=== PATIENT | female | born 1975 | race Caucasian/White ===

== ENCOUNTER 2023-09-13 07:52 | Outpatient (CLI) | payer MEDICAID, SELFPAY ==
--- NOTE | 2023-09-13 08:00 | CT_ITS ---
WS: [id number] CT ABDOMEN AND PELVIS WITH CONTRAST HISTORY: chronic abdominal pain TECHNIQUE: Imaging performed of the abdomen and pelvis with IV contrast. Single phase imaging of the abdomen. Coronal and sagittal reformats are submitted. All CT scans at [facility] use at [address] one of these dose optimization techniques: automated exposure control; mA and/or kV adjustment per patient size (includes targeted exams where dose is matched to clinical indication); or iterative re construction. IV CONTRAST: Omnipaque 350; 100 mL IV. Oral contrast: Yes. DLP: 333.77 mGy.cm COMPARISON: None available. Lower thorax: Lung bases are clear. Heart is normal size. No hiatal hernia. Liver/biliary system: Normal size liver. There are a very few low-attenuation nodules throughout the liver which are very small. Too small to characterize. Normal portal vein. Gallbladder: Normal. No gallstones or wall thickening. No pericholecystic fluid. Pancreas: Normal size pancreas and pancreatic duct. No adjacent inflammation. Spleen: Normal size spleen. No mass or infarct. Adrenal glands: Normal. Right kidney: Normal size kidney. Upper pole cyst 1.4 x 1.7 cm. No obstruction. Left kidney: Cortical cyst mid kidney less than a centimeter. Aorta: Normal. Lymphadenopathy: None. Free fluid: There is fluid within the LEFT pelvis which does abut the ovary. The amount of fluid is s lightly more than physiologic. GI tract: Normally distended stomach. No small bowel obstruction. Tortuous colon with constipation. N ormal appendix. Abdominal wall: Unremarkable abdominal wall. No hernia. Pelvis: Partial hysterectomy. The uterus is no longer present. The RIGHT ovary by history has been re moved. There is free fluid in the LEFT adnexa in contact with the ovary. Bones: Unremarkable. IMPRESSION: 1. Prior hysterectomy. The LEFT ovary remains and there is a small amount of free fluid adjacent to the ovary in the LEFT adnexa. The amount of fluid is slightly more than expected for physiologic. If there is any pelvic pain consider transvaginal pelvic ultrasound imaging to better evaluate the ovary in the adnexa. 2. Normal appendix. 3. No renal obstruction. 4. RIGHT renal cyst. 5. Diffuse constipation.
[2023-09-13] MEDS: iohexol 350 mg/mL 500 mL Btl (per mL) IV (09:00)
[2023-09-13] MEDS: iohexol 350 mg/mL 500 mL Btl (per mL) PO (09:01)
== END 2023-09-13 07:53 | disposition home or self-care (01) ==
LOC: RAD 07:53
PROVIDERS: PCP Nurse Practitioner Family; Visit Provider Surgery
DX: R10.9 Unspecified abdominal pain (principal); G89.29 Other chronic pain; R93.89 Abnormal findings on diagnostic imaging of other specified body structures; Z90.710 Acquired absence of both cervix and uterus; N28.1 Cyst of kidney, acquired; K59.00 Constipation, unspecified
CPT/HCPCS: 74177; Q9967

== ENCOUNTER 2023-09-30 11:24 | Outpatient (CLI) | payer MEDICAID, SELFPAY ==
--- NOTE | 2023-09-30 12:00 | US_ITS ---
WS: [id number] US pelv w/transvag [id number] HISTORY: left adnexal fluid COMPARISON: None available. Status post hysterectomy. No midline mass. Right ovary: Prior RIGHT oophorectomy. No RIGHT adnexal mass.. Left ovary: 3.9 cm x 3.4 cm x 1.7 cm. Normal size ovary. Separate from the ovary is a fluid collectio n in the LEFT adnexa extending deep within the pelvis. This cystic collection conforms to the adjacen t space and measures 1.6 x 3.4 x 1.3 cm. This is a simple cystic collection that was noted on the constantin or CT of 09/13/2023. No increased vascularity. No free fluid in the pelvis. IMPRESSION: 1. Cystic mass in the LEFT adnexa does not appear to be contiguous with the ovary. Favor peritoneal inclusion cyst. 2. Status post hysterectomy and RIGHT oophorectomy.
== END 2023-09-30 11:25 | disposition home or self-care (01) ==
LOC: RAD 11:25
PROVIDERS: PCP Nurse Practitioner Family; Visit Provider Surgery
DX: N94.89 Other specified conditions associated with female genital organs and menstrual cycle (principal); R10.2 Pelvic and perineal pain; Z90.710 Acquired absence of both cervix and uterus; Z90.721 Acquired absence of ovaries, unilateral
CPT/HCPCS: 76830; 76856

== ENCOUNTER → 2023-11-12 10:00 | Outpatient (BNVA) | payer SELFPAY | PROVIDERS: PCP Nurse Practitioner Family; Referring Provider Surgery; Visit Provider Nurse Practitioner Women's Health | DX: N83.209 Unspecified ovarian cyst, unspecified side (principal) | CPT/HCPCS: 82670; 83001; 83002 ==

== ENCOUNTER 2023-11-13 11:20 | Day surgery (SDC) | payer SELFPAY ==
[2023-11-13 12:13] VITALS: BP 130/75; PULSE 72; RESP 16; TEMP 36.1; O2SAT 100; BMI 29.2
[2023-11-13] MEDS: sodium chloride 0.9% 1,000 ML 30 ML IV (12:17)
--- NOTE | 2023-11-13 12:22 | W.PM.OPSUD ---
Surgery/Procedure H&P Update DATE OF PROCEDURE: November 13, 2023 DATE H&P PERFORMED: 10/16/23 H&P UPDATE INFORMATION: I have reviewed H&P completed within last 30 days, I have examined patient prior to procedure, No changes to prior documentation and H&P is in [facility] EMR on date indicated PLANNED PROCEDURE: Operation Date: 11/13/23 12:20 Proposed Procedures p EGD(Not Applicable) - Chintan Johnson MD s Colonoscopy(Not Applicable) - Chintan Johnson MD
--- NOTE | 2023-11-13 12:22 | ANES.PREANE2 ---
Pre-Anesthetic Assessment Height/Weight: Height 1.63 m Weight 77.111 kg Temp Pulse Resp BP Pulse Ox O2 Del Method 96.9 F L 72 16 130/75 100 Room Air 11/13/23 12:13 11/13/23 12:13 11/13/23 12:13 11/13/23 12:13 11/13/23 12:13 11/13/23 12:13 Operation Date: 11/13/23 12:20 Proposed Procedures p EGD(Not Applicable) - Chintan Johnson MD s Colonoscopy(Not Applicable) - Chintan Johnson MD Familial anesthetic complications: none Was Beta Jasmin taken within 24 hours: N/A Was Clonidine taken within 24 hours: N/A Last intake: Intake Last Liquid Date 11/12/23 Last Liquid Time 21:00 Last Solid Date 11/11/23 Last Solid Time 19:00 Social No alcohol and No tobacco Exam alert and oriented x 3 Airway Submandibular: within normal limits Cervical ROM: within normal limits Mallampati: Class II Dentition: full Anesthetic Plan ASA status: 1 Anesthesia: Anesthesia Evaluation, General and MAC Risk of > 500 ml blood loss (7ml/kg in children): No Medications/Allergies Home Medications Medication Instructions Recorded Confirmed Last Taken Type No Known Home Medications 08/20/23 11/13/23 Unknown History Allergies Allergy/AdvReac Type Severity Reaction Status Date / Time morphine AdvReac Intermediate ALGY-Difficulty Uncoded 11/13/23 12:09 Breathing Current Medications Generic Name Dose Route Start Last Admin Trade Name Freq PRN Reason Stop Dose Admin Sodium Chloride 1,000 mls @ 30 mls/hr 11/13/23 12:00 11/13/23 12:17 Sodium Chloride 0.9% IV 30 mls/hr .Q24H JOSAFAT Administration PFSH Anesthesia Surgical History (Updated 11/12/23 @ 11:00 by Brit Lassiter NP) History of partial hysterectomy still has left ovary Family History (Updated 11/12/23 @ 09:32 by Mere Hameed RN) Mother Colon cancer Diabetes Hypertension Father Heart disease Stroke Denies family history of Ovarian cancer Prostate cancer Breast cancer Uterine cancer Thyroid disease Data Anesthesia Cardiac Studies: No Data to Display
[2023-11-13 13:09] VITALS: BP 86/59; PULSE 73; RESP 16; TEMP 36.6; O2SAT 97
[2023-11-13 13:19] VITALS: BP 107/76; PULSE 64; RESP 18; O2SAT 97
--- NOTE | 2023-11-13 13:35 | ANE.PACU2 ---
Inpatient post-anesthesia follow up: Airway intact: Yes Vital signs: Temperature 97.8 F Pulse Rate 64 Respiratory Rate 18 Blood Pressure 107/76 Pulse Oximetry 97 Oxygen Delivery Me thod Room Air Oxygen Flow Rate Fraction of Inspir ed Oxygen Hydration adequate: Yes Nausea and vomiting: No Pain level: 1 Mental status: Baseline
== END 2023-11-13 13:36 | disposition home or self-care (01) ==
PROVIDERS: PCP Nurse Practitioner Family; Visit Provider Surgery
PROC: 0DJ08ZZ Inspection of Upper Intestinal Tract, Via Natural or Artificial Opening Endoscopic (ICD-10-PCS; CPT 43235; principal; 2023-11-13 12:20)
PROC: 0DJD8ZZ Inspection of Lower Intestinal Tract, Via Natural or Artificial Opening Endoscopic (ICD-10-PCS; CPT 45378; 2023-11-13 12:20)
DX: Z12.11 Encounter for screening for malignant neoplasm of colon (principal); R10.9 Unspecified abdominal pain; G89.29 Other chronic pain; K44.9 Diaphragmatic hernia without obstruction or gangrene; K29.50 Unspecified chronic gastritis without bleeding
CPT/HCPCS: 43239; 45380; 88305; 88342; J2704; J7030

== ENCOUNTER → 2024-02-11 13:04 | Outpatient (BNVA) | payer MEDICAID, SELFPAY | PROVIDERS: PCP Nurse Practitioner Family; Visit Provider Nurse Practitioner Women's Health | DX: N83.202 Unspecified ovarian cyst, left side (principal) | CPT/HCPCS: 76830 ==

== ENCOUNTER → 2024-06-01 10:26 | Outpatient (BNVA) | payer MEDICAID, SELFPAY | PROVIDERS: PCP Nurse Practitioner Family; Visit Provider Obstetrics & Gynecology | DX: N70.11 Chronic salpingitis (principal) | CPT/HCPCS: 76830 ==

== ENCOUNTER 2024-07-30 08:29 | Day surgery (SDC) | payer MEDICAID, SELFPAY ==
[2024-07-30] VITALS (15 sets, daily range): BP systolic 98–135; BP diastolic 65–86; PULSE 67–92; RESP 12–18; TEMP 36.1–37.1; O2SAT 90–100; BMI 30.2
--- NOTE | 2024-07-30 03:21 | W.PM.OPSFHP ---
Same Day Surgery H&P Indication for Procedure/HPI DATE OF PROCEDURE: July 30, 2024 CHIEF COMPLAINT/INDICATIONFOR SURGICAL PROCEDURE: left adnexal cyst PREOP DIAGNOSIS: left adnexal cyst PLANNED PROCEDURE: Operation Date: 07/30/24 10:15 Proposed Procedures p Laparoscopic Ovarian Cystectomy(Left) - Kam Malloy MD s Laparoscopic Salpingectomy(Left) - Kam Malloy MD 48 y.o. h/o total abdominal hysterectomy 10 years ago with persistent left adnexal cyst Medications/Allergies* Home Medications Medication Instructions Recorded Confirmed Type No Known Home Medications 02/26/24 07/29/24 History Allergies/Adverse Reactions Allergy/AdvReac Type Severity Reaction Status Date / Time morphine AdvReac Intermediate ALGY-Difficulty Uncoded 07/29/24 10:57 Breathing Pertinent History/Comorbid Conditions* Surgical History (Updated 11/12/23 @ 11:00 by Brit Lassiter NP) History of partial hysterectomy still has left ovary Family History (Updated 11/12/23 @ 09:32 by Mere Hameed RN) Colon cancer Mother Diabetes Mother Heart disease Father Hypertension Mother Stroke Father Denies family history of Ovarian cancer Prostate cancer Breast cancer Uterine cancer Thyroid disease Social History Smoking and tobacco/nicotine status: never used tobacco/nicotine Pertinent Exam Findings alert, oriented x 3, clear to auscultation bilaterally and regular rate & rhythm Recommendations Surgery/Procedure today Coding Level of Care Code Acute Code for Chg Fwd Time Spent (min) 20
--- NOTE | 2024-07-30 08:47 | W.PM.OPSUD ---
Surgery/Procedure H&P Update DATE OF PROCEDURE: July 30, 2024 DATE H&P PERFORMED: 07/30/24 H&P UPDATE INFORMATION: I have reviewed H&P completed within last 30 days, I have examined patient prior to procedure and No changes to prior documentation PREOP DIAGNOSIS: left adnexal cyst PLANNED PROCEDURE: Operation Date: 07/30/24 10:15 Proposed Procedures p Laparoscopic Ovarian Cystectomy(Left) - Kam Malloy MD s Laparoscopic Salpingectomy(Left) - Kam Malloy MD
--- NOTE | 2024-07-30 09:19 | ANES.PREANE2 ---
Pre-Anesthetic Assessment Height/Weight: Height 5 ft 4 in Weight 176 lb Temp Pulse Resp BP Pulse Ox O2 Del Method 98.7 F 67 18 132/86 100 Room Air 07/30/24 09:16 07/30/24 09:16 07/30/24 09:16 07/30/24 09:16 07/30/24 09:16 07/30/24 09:00 Preop Diagnosis: left adnexal cyst Operation Date: 07/30/24 10:15 Proposed Procedures p Laparoscopic Ovarian Cystectomy(Left) - Kam Malloy MD s Laparoscopic Salpingectomy(Left) - Kam Malloy MD Was Beta Jasmin taken within 24 hours: N/A Was Clonidine taken within 24 hours: N/A Last intake: Intake Last Liquid Date 07/29/24 Last Liquid Time 22:30 Last Solid Date 07/29/24 Last Solid Time 19:00 Social No alcohol and No tobacco Exam alert, oriented x 3, clear to auscultation bilaterally and regular rate & rhythm Airway Submandibular: within normal limits Cervical ROM: within normal limits Mallampati: Class I Dentition: full Anesthetic Plan ASA status: 1 Anesthesia: General Other: No prior issues with anesthesia NPO since yesterday No home meds Denies any cardiac or pulmonary issues METs greater than 4 Plan for GETA Medications/Allergies Home Medications Medication Instructions Recorded Confirmed Last Taken Type No Known Home Medications 02/26/24 07/29/24 Unknown History Allergies Allergy/AdvReac Type Severity Reaction Status Date / Time morphine AdvReac Intermediate ALGY-Difficulty Uncoded 07/29/24 10:57 Breathing [facility] Anesthesia Surgical History History of partial hysterectomy still has left ovary Family History Mother Colon cancer Diabetes Hypertension Father Heart disease Stroke Denies family history of Ovarian cancer Prostate cancer Breast cancer Uterine cancer Thyroid disease Social History Smoking and tobacco/nicotine status: never used tobacco/nicotine Data Anesthesia Cardiac Studies: No Data to Display
[2024-07-30] MEDS: sodium chloride 0.9% 1,000 ML 30 ML IV (09:32)
--- NOTE | 2024-07-30 11:01 | SUR.OPER ---
called and notified him of surgical progress.
[2024-07-30] MEDS: ceFAZolin 2,000 mg SDV 2000 MG IVP (11:20)
--- NOTE | 2024-07-30 13:10 | ANE.PACU2 ---
Inpatient post-anesthesia follow up: Airway intact: Yes Vital signs: Temperature 97.0 F Pulse Rate 78 Respiratory Rate 15 Blood Pressure 101/65 Pulse Oximetry 92 Oxygen Delivery Me thod Room Air Oxygen Flow Rate Fraction of Inspir ed Oxygen Hydration adequate: Yes Nausea and vomiting: No Pain level: 1 Mental status: Baseline
[2024-07-30] MEDS: ketorolac 30 mg/mL INJ IVP ×2 (13:26→19:25)
[2024-07-30] MEDS: dextrose 5%-lactated ringers 1,000 ML 125 ML IV ×2 (13:27→22:11)
--- NOTE | 2024-07-30 14:10 | P.OP_ITS ---
Operative Report Date of procedure: July 30, 2024 Pre-op diagnosis: Persistent left adnexal cyst Post-op diagnosis: Dense pelvic adhesions Incidental cystotomy, repaired no adnexal cyst present Post-op findings: Dense pelvic adhesions 1-2 cm bladder laceration, repaired No ovarian or adnexal cyst Normal left ovary Procedure done: Laparoscopy Adhesiolysis Repair of incidental cystotomy Implants: none Specimens removed/disposition: none Surgeon: Kam Malloy MD Change Of Address Clerk: Mt Gomes MD Anesthesia: General Estimated blood loss: 10 cc Complications: 1-2 cm cystotomy, repaired Findings: Dense pelvic adhesions 1-2 cm bladder laceration, repaired No ovarian or adnexal cyst Normal left ovary Condition: stable Disposition: PACU Brief History: 48 y.o. h/o hysterectomy persistent left adnexal cyst on ultrasound Procedure: Informed consent obtained. The patient was taken to the OR and placed supine on the table. General endotracheal anesthesia was given. The abdomen was prepped and draped in usual fashion. A robertson catheter was placed. A 5 mm subumbilical skin incision was made. A laparoscopic trocar with sheath was inserted into the peritoneal cavity under direct vision with the laparoscope. Pneumoperitoneum was achieved. Two separate 5 mm incisions were made in the right and left mid- abdominal quadrants under direct visualization to accommodate additional trocars and sheaths. The pelvis was explored with the laparoscope. There were dense pelvic adhesions, especially in the left adnexa, involving the bowel. At this point, Dr. Gomes of general surgery was consulted intraoperatively. A separate dictation will cover this portion of the procedure. The left ovary was seen to be normal. There were no adnexal cysts. The persistent left adnexal cyst seen on pelvic ultrasound was likely to be from the dense pelvic adhesions. Following the cystotomy repair, all instruments were removed from the abdomen after the pneumoperitoneum was allowed to escape. The skin incisions were closed with 4-O monocryl. Dermabond was applied. The patient was then awakened and taken to the recovery room in good condition. Postop condition stable. EBL 10 cc. Sponge, needle, and instrument counts were correct x two
[2024-07-30] MEDS: fentaNYL 50 mcg/mL INJ 2mL IVP (18:03)
--- NOTE | 2024-07-30 18:20 | PM.OP ---
Operative Report Date of procedure: July 31, 2024 Pre-op diagnosis: Persistent left adnexal cyst Post-op diagnosis: Dense pelvic adhesions Incidental cystotomy, repaired Procedure done: Extensive laparoscopic lysis of adhesions Laparoscopic repair of incidental cystotomy Implants: None Specimens removed/disposition: None Surgeon: Mt Kramer DO Anesthesia: General Estimated blood loss (mL): 10 Complications: Incidental cystostomy, repaired Procedure: Dr. Malloy asked me to assist in the pelvic dissection for this patient. There were dense pelvic adhesions to the sigmoid colon and rectum, pelvis and bladder. With meticulous dissection, I was able to dissect the colon away from surrounding tissues. No cyst was encountered, however an incidental cystotomy was noted. This was repaired laparoscopically with 3-0 Vicryl suture in a simple interrupted fashion. The repair was tested by filling the bladder through the Arellano catheter with saline and blue dye. No leak was identified. No adnexal cyst was identified either, only dense adhesions encountered. The remainder of the surgery was completed by Dr. Malloy.
--- NOTE | 2024-07-30 18:44 | PC.NURSE ---
Patient requested to remove SCDs. This nurse educated patient of benefits of wearing SCDs and risks of refusing SCDs. Patient refused.
[2024-07-30] MEDS: ondansetron 2 mg/ML SDV 2 mL 4 MG IVP (20:44)
[2024-07-30] MEDS: HYDROcodone-acetaminophen 5-325 mg Tablet PO (21:45)
[2024-07-31] MEDS: ketorolac 30 mg/mL INJ IVP (01:50)
[2024-07-31 01:53] VITALS: BP 104/67; PULSE 73; RESP 16; TEMP 36.8
[2024-07-31] MEDS: HYDROcodone-acetaminophen 5-325 mg Tablet PO ×2 (05:40→11:31)
[2024-07-31 06:36] LABS: Hematocrit 29.7 % (36-47); Mean Corpuscular Hemoglobin 28.4 pg (27-33); Mean Corpuscular Volume 88.9 fl (85-98); Mean Platelet Volume 9.8 fL (7.4-10.4); Platelet Count 258 10^3/cmm (157-399); Red Blood Count 3.34 10^6/uL (3.85-5.65); Red Cell Distribution Width 13.2 % (12.1-15.1); White Blood Count 7.36 10^3/uL (3.29-11.43)
[2024-07-31] MEDS: docusate sodium 100 mg Capsule PO (09:00)
[2024-07-31] MEDS: ibuprofen 800 mg tablet PO (09:00)
[2024-07-31 09:17] VITALS: BP 108/79; PULSE 78; TEMP 36.7
[2024-07-31 11:55] VITALS: BP 118/65; PULSE 68; RESP 15; TEMP 36.7; O2SAT 98
[2024-08-02] VITALS (18 sets, daily range): BP systolic 129–142; BP diastolic 86–89; PULSE 84–100; O2SAT 97–99
== END 2024-07-31 12:05 | disposition home or self-care (01) ==
LOC: OR 08:31 → OBGYN 18:11
PROVIDERS: PCP Nurse Practitioner Family; Visit Provider Obstetrics & Gynecology
PROC: (CPT 44180; principal; 2024-07-30 10:05)
PROC: (CPT 44180; 2024-07-30 10:05)
DX: N73.6 Female pelvic peritoneal adhesions (postinfective) (principal); N83.202 Unspecified ovarian cyst, left side; N99.71 Accidental puncture and laceration of a genitourinary system organ or structure during a genitourinary system procedure
CPT/HCPCS: 44180; 51702; 85027; J0131; J0690; J1100; J1171; J1885; J2250; J2405; J2704; J3010; J3490; J7030; J7121

== ENCOUNTER 2024-08-10 10:57 | Outpatient (CLI) | payer MEDICAID, SELFPAY ==
--- NOTE | 2024-08-10 11:05 | CT_ITS ---
WS: [id number] CT cystogram, with and without contrast. HISTORY: LACERATION OF BLADDER POSTOPERATIVE COMPLICATION TECHNIQUE: Contiguous imaging is performed of the pelvis with and without contrast. Contrast instille d into the urinary bladder via an existing Arellano catheter. No IV contrast. Coronal and sagittal refor mats are reviewed. All CT scans at [facility] use at least one of these dose optimization pato hniques: automated exposure control; mA and/or kV adjustment per patient size (includes targeted exam s where dose is matched to clinical indication); or iterative reconstruction. DLP: 1375.14 mGy.cm COMPARISON: 09/13/2023 Noncontrast: There is a Arellano catheter present in a nondistended urinary bladder. Arellano catheter is w ell distended. There is no free fluid in the pelvis. There is a small loculated collection in the LEF T adnexa measuring 5.0 x 1.3 cm which persists on all images and does not fill with contrast. This ma y be a postoperative seroma or parapelvic inclusion cyst. Fluid was noted in this location on the constantin or CT dated 09/13/2023. Urinary bladder is filled with dilute contrast using sterile saline and Omnipaque. Urinary bladder is distended until the patient was uncomfortable. There is no intraperitoneal or extraperitoneal extrav asation of contrast. Arellano catheter remains well positioned in the urinary bladder. Supine and prone imaging performed with a distended urinary bladder. There is no extravasation of contrast. Additional sequences are performed after draining the urinary bladder via the Arellano catheter. There i s no extravasation into the pelvis. There are a few small high density foci in the LEFT pelvis which were also present on the noncontrast exam consistent with small phleboliths. Mild degenerative joint disease at the hips. CT/CT pelvis wo con [id number] IMPRESSION: 1. CT cystogram is performed of the urinary bladder. 2. Imaging is performed precontrast, post distention and post drainage of the urinary bladder. There is no intraperitoneal or extraperitoneal extravasation o f the contrast. No bladder perforation is identified. 3. There is a small fluid collection in the LEFT adnexa measuring 5.0 x 1.3 cm which remains the same size on all images. This is in the same location as the fluid seen on the prior CT of 09/13/2023 although smaller. Suspect this is prob ably a small postoperative seroma or pelvic inclusion cyst. Favor pelvic inclus ion cyst as it conforms to the adnexal space.
[2024-08-10] MEDS: iohexol 350 mg/mL 500 mL Btl (per mL) XX (12:03)
== END 2024-08-10 10:58 | disposition home or self-care (01) ==
LOC: RAD 10:59
PROVIDERS: PCP Nurse Practitioner Family; Visit Provider Obstetrics & Gynecology
DX: N99.89 Other postprocedural complications and disorders of genitourinary system (principal); Z96.0 Presence of urogenital implants
CPT/HCPCS: 72192